=== PATIENT | female | born 1965 | race African-American/Black ===

== ENCOUNTER 2021-01-25 11:13 | Outpatient (CLI) | payer OTHER ==
[2021-01-26 11:57] LABS: SARS-CoV-2 PCR by NAA Not Detected (NotDetected)
== END 2021-01-25 11:14 | disposition home or self-care (01) ==
LOC: CSHLAB 11:13
PROVIDERS: ATTEND Internal Medicine Gastroenterology
DX: Z01.812 Encounter for preprocedural laboratory examination (principal); Z20.822 Contact with and (suspected) exposure to COVID-19
CPT/HCPCS: U0003; U0005

== ENCOUNTER 2021-01-30 08:16 | Day surgery (SDC) | payer OTHER ==
[2021-01-26 15:57] VITALS: BMI 30.4
[2021-01-30] MEDS ORDERED: Lidocaine 1% MPF 2 ML VIAL ONE (08:32)
[2021-01-30] MEDS ORDERED: PROPOFOL 40 ML ONE (09:27)
[2021-01-30] MEDS ORDERED: PROPOFOL 20 ML ONE (10:03)
== END 2021-01-30 10:49 | disposition home or self-care (01) ==
LOC: CSHSDC 08:16
PROVIDERS: ATTEND Internal Medicine Gastroenterology
PROC: 0DBN8ZZ Excision of Sigmoid Colon, Via Natural or Artificial Opening Endoscopic (ICD-10-PCS; principal; 2021-01-30)
DX: Z12.11 Encounter for screening for malignant neoplasm of colon (principal); K63.5 Polyp of colon; K64.9 Unspecified hemorrhoids; E03.9 Hypothyroidism, unspecified; D64.9 Anemia, unspecified; K21.9 Gastro-esophageal reflux disease without esophagitis; E78.5 Hyperlipidemia, unspecified
CPT/HCPCS: 88305; J2704